=== PATIENT | male | born 1970 | race African-American/Black ===

== ENCOUNTER 2017-01-04 09:19 | Emergency (ER) | payer SELFPAY ==
[~2017-01-04] VITALS: Ht 180.3 cm; Wt 99.8 kg
[2017-01-04 09:27] VITALS: BP 139/88
--- NOTE | 2017-01-04 10:01 | RAD ---
Chest, 2 views, 01/04/2017: History: Cough, congestion, chest pain The heart size is normal. The lungs are clear. There is no evidence of pleural fluid. Minimal spurring is present in the spine. IMPRESSION: No acute cardiopulmonary abnormality is detected.
--- NOTE | 2017-01-04 10:14 | PHYS DOC ---
Past Medical History Past Medical History: Hypertension Additional Past Medical Histor: pt does not take BP med. Past Surgical History: Other Additional Past Surgical Histo: Rt thigh Alcohol Use: Occasionally Drug Use: None Adult General Chief Complaint Chief Complaint: COUGH HPI HPI Patient is a 46 year old male presents to the emergency department with his . Patient states had a cough and congestion for the last month. He states that he has had a sharp chest discomfort in the front of his chest as well as back pain and discomfort. He states these 2 areas have increased pain and discomfort with coughing. He states that he is coughing up yellow to white colored phlegm. He denies any fever, chills. He does state he has a history of smoking. Medications were cough and congestion with no relief. Review of Systems Review of Systems Constitutional: Denies fever or chills [] Eyes: Denies change in visual acuity, redness, or eye pain [] HENT: nasal congestion denies sore throat [] Respiratory: cough denies shortness of breath [] Cardiovascular: No additional information not addressed in HPI [] GI: Denies abdominal pain, nausea, vomiting, bloody stools or diarrhea [] : Denies dysuria or hematuria [] Musculoskeletal: Denies back pain or joint pain [] Integument: Denies rash or skin lesions [] Neurologic: Denies headache, focal weakness or sensory changes [] Endocrine: Denies polyuria or polydipsia [] All other systems were reviewed and found to be within normal limits, except as documented in this note. Current Medications Current Medications Current Medications Medications (Trade) Dose Ordered Sig/Raisa Start Time Stop Time Status Last Admin Dose Admin Ibuprofen (Motrin) 800 mg 1X ONCE 01/04/17 11:00 01/04/17 11:01 DC 01/04/17 11:04 800 MG Allergies Allergies Allergies Coded Allergies Type Severity Reaction Last Updated Verified No Known Drug Allergies 06/06/14 No Physical Exam Physical Exam Constitutional: Well developed, well nourished, no acute distress, non-toxic appearance. [] HENT: Normocephalic, atraumatic, bilateral external ears normal, oropharynx moist, no oral exudates, nose normal. Bilateral tympanic membranes appear to be normal. Throat is erythematous with postnasal drip. No exudate noted. Patient with frontal and maxillary sinus tenderness Eyes: PERRLA, EOMI, conjunctiva normal, no discharge. [] Neck: Normal range of motion, no tenderness, supple, no stridor. [] Cardiovascular:Heart rate regular rhythm, no murmur [] Lungs & Thorax: Bilateral breath sounds clear to auscultation [] Skin: Warm, dry, no erythema, no rash. Patient with a quarter size area on the right upper back that appears to be very tender that has a black spot in the middle however no redness noted. Back: No tenderness Extremities: No tenderness, no cyanosis, no clubbing, ROM intact, no edema. [] Neurologic: Alert and oriented X 3, normal motor function, normal sensory function, no focal deficits noted. [] Psychologic: Affect normal, judgement normal, mood normal. [] Current Patient Data Vital Signs Vital Signs Date Time Temp Pulse Resp B/P (MAP) Pulse Ox O2 Delivery O2 Flow Rate FiO2 01/04/17 09:27 98.2 67 18 139/88 (105) 97 Room Air 98.2 Lab Values Laboratory Tests Test 01/04/17 10:18 POC Troponin I 0.00 ng/ml (<0.08) EKG EKG Was completed at 09 41 heart rate was 61 sinus rhythm noted no STEMI per Dr. Yin Radiology/Procedures Radiology/Procedures [][facility] [address] [place] [address] IMAGING REPORT Signed PATIENT: NEVIN BARNSE ACCOUNT: [id number] : 1970 LOCATION: ER AGE: 46 SEX: M EXAM STATUS: PRE ER ORD. PHYSICIAN: ABHIJEET GODINEZ APRN REASON: cough congestion chest hurts to cough PROCEDURE: CHEST PA & LATERAL Chest, 2 views, 01/04/2017: History: Cough, congestion, chest pain The heart size is normal. The lungs are clear. There is no evidence of pleural fluid. Minimal spurring is present in the spine. IMPRESSION: No acute cardiopulmonary abnormality is detected. DICTATED and SIGNED BY: NELIDA WILSON MD DATE: 01/04/17 0956 CC: ABHIJEET GODINEZ APRN; NO PCP ~ Course & Med Decision Making Course & Med Decision Making Pertinent Labs and Imaging studies reviewed. (See chart for details) CXR per radiologist negative. Istat troponin was 0. Patient will be discharged home with recommendations for sinusitis. He may use Coricidin HBP and Mucinex DM to help with the nasal congestion and cough. Patient will be placed on Augmentin for sinusitis infection recommended plenty of fluids. Recommended smoking cessation. Patient was also recommended drink plenty of fluids such as water Gatorade or propel. [I've spoken with the patient and/or caregivers. I've explained the patient's condition, diagnosis and treatment plan based on information available to me at this time. I've answered the patient's and/or caregivers questions and addressed any concerns. The patient and/or caregivers have a good understanding the patient's diagnosis, condition and treatment plan as can be expected at this point. Vital signs have been stabilized. The patient's condition is stable for discharge from the emergency department. The patient will pursue further outpatient evaluation with her primary care provider or other designated consulting physician as outlined in the discharge instructions. Patient and/or caregivers are agreeable to this plan of care and follow-up instructions have been explained in detail. The patient and/or caregivers have received these instructions in written format and expressed understanding of these discharge instructions. The patient and her caregivers are aware that if any significant change in condition or worsening of symptoms should prompt him to immediately return to this of the closest emergency department. If an emergent department is not readily available I would encourage him to call 911. ] [place] Disclaimer Dragon Disclaimer This electronic medical record was generated, in whole or in part, using a voice recognition dictation system. Departure Departure Impression: Primary Impression: Sinusitis Additional Impressions: Chest wall pain Back pain Disposition: 01 HOME, SELF-CARE Condition: STABLE Referrals: NO PCP (PCP) Patient Instructions: Back Pain, Adult, [id number], Chest Wall Pain, Easy-to- Read, Sinusitis, [id number], Smoking Cessation, Tips For Success Additional Instructions: Activity as tolerated Medication as prescribed Tylenol or Ibuprofen for fever, chills, or generalized body aches and discomfort Warm moist packs to the chest wall area Drink plenty of fluids such as water, gatorade or propel Stop smoking Followup with your primary care provider in 5-7 days Return to emergency department as needed for signs and symptoms that become worse. Scripts Amoxicillin/Potassium Clav (AUGMENTIN [id number] TABLET) 1 Each Tablet 1 TAB PO BID, #20 TAB Prov: ABHIJEET GODINEZ SERVICE MANAGER 01/04/17 Problem Qualifiers Primary Impression: Sinusitis Sinusitis location: unspecified location Chronicity: unspecified Qualified Codes: J32.9 - Chronic sinusitis, unspecified Additional Impressions: Back pain Back pain location: back pain in unspecified location Chronicity: unspecified Back pain laterality: unspecified Qualified Codes: M54.9 - Dorsalgia, unspecified ABHIJEET GODINEZ SERVICE MANAGER Jan 04, 2017 10:14
--- NOTE | 2017-01-04 10:20 | EKG ---
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
[2017-01-04] MEDS ORDERED: AMOX1TAB61 PO (10:50)
[2017-01-04] MEDS ORDERED: IBUPROFEN 800 MG TABLET. PO ONE (11:00)
== END 2017-01-04 11:15 | disposition home or self-care (01) ==
LOC: ER 09:19
DX: J32.9 Chronic sinusitis, unspecified (principal); R07.89 Other chest pain; M54.9 Dorsalgia, unspecified; I10 Essential (primary) hypertension
CPT/HCPCS: 71020; 84484; 93005; 99284-25